=== PATIENT | female | born 1955 | race African-American/Black ===

== ENCOUNTER → 2022-11-01 14:28 | Outpatient (REF) | payer MEDICARE, MEDICAID, SELFPAY ==
--- NOTE | 2022-11-01 14:36 | CA_ITS ---
Transthoracic Echocardiogram Patient (Last, First, Middle): Kalyn Garza, Gender: Female Date of : 1955 Age: 67 Procedure Date: 11/01/2022 Procedure Type: Transthoracic Echocardiogram Location: [facility] Height: 149.86 cm Weight: 88.45 kg BSA: 1.82 m2 Heart Rate: bpm BP: 124 / 60 mmHg Architecture Professor: Referring MD: Chelsea Altamirano MD Cooker Loader: Cameron Medina MD Symptoms: DYSPNEA R06.00 Study Quality: Technically Difficult ECG Rhythm: Sinus Conclusions: - 1. Normal LV ejection fraction 55-60% with moderate asymmetric basal septal hypertrophy with obstructive physiology with mean gradient of 18 mmHg at rest. 2. Normal cardiac valvular Dopplers with limited visualization of cardiac valves 3. Normal measured RV systolic pressure 4. No gross pericardial effusion Findings Procedure Information Contrast agent, definity, is being given per protocol without apparent complications. Left Ventricle Normal left ventricular size, thickness, and systolic function. The visually estimated ejection fraction is between 55-60%. There is no evidence of regional wall motion abnormalities. 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 There is systolic anterior motion of the chordae of the mitral valve. There is moderate septal asymmetric hypertrophy. There is late systolic accentuation in gradient across the LVOT on continuous-wave Doppler suggestive of obstructive physiology, mean gradient of 18 mmHg. Consider alternative imaging modality such as cardiac MRI Right Ventricle The right ventricle was not well visualized. Atria The left atrium was not well visualized. Interatrial shunt cannot be excluded. The right atrium was not well visualized. Aortic Valve There is mild calcification of the aortic valve. There is no aortic valve stenosis. There is mild aortic valve regurgitation. Mitral Valve The mitral valve was not well visualized. There is trace mitral valve regurgitation. There is no mitral valve stenosis. Pulmonic Valve The pulmonic valve is likely normal. There is trace to mild pulmonic valve regurgitation. Tricuspid Valve Normal tricuspid valve structure. There is trace tricuspid valve regurgitation. The right ventricular systolic pressure is normal. The right ventricular systolic pressure is 16 mmHg. Normal right atrial pressure. There is no evidence of pulmonary hypertension. Great Vessels All visible segments of the aorta are normal in size. The pulmonary artery was not well visualized. There is no dilatation of the ascending aorta. Venous The inferior vena cava is normal in size and collapses greater than 50% with inspiration. Pericardium/Pleural There is no evidence of pericardial effusion. Prior Study Comparison No prior study available for comparison. Recommendations, Care & Conclusions Consider a SONDRA if clinically appropriate. Measurements 2D Linear Measurements IVSd: 1.64 0.6-0.9/0.6-1.0 cm LVIDd: 3.20 3.9-5.3/4.2-5.9 cm LVIDd Index: 1.76 2.4-3.2/2.2-3.1 cm/m2 LVIDs: 2.22 2.0-3.6 cm LVPWd: 0.95 0.7-1.1 cm Ao Root: 2.70 2.1-3.5 cm LA Diam: 3.10 2.7-3.8/3.0-4.0 cm LAIDs Index: 1.70 1.5-2.3 cm/m2 LV Mass: 167.89 67-162/88-224 g LV Mass Index: 92.25 43-95/49-115 g/m2 LVOT Diam: 2.00 3.0+(-)1.3 cm Mitral Valve MV Pk E: 0.50 MV PK A: 0.99 MV Decel Time: 150.00 E/A: 0.50 E'Lateral: 6.31 E'Medial: 4.35 E/E' Med: 11.50 E/E' Lat: 7.90 PHT: 44.00 MVA PHT: 5.00 Decel [place]: 3.33 Aortic Valve AoV Pk Ralph: 1.34 AoV Mn Ralph: 0.91 AoV VTI: 0.24 AoV Pk Grad: 7.00 Aov Mn Grad: 4.00 DESI Cont.VTI: 2.23 LVOT LVOT Pk Ralph: 1.01 LVOT Mn Ralph: 0.67 LVOT VTI: 0.17 LVOT Pk Grad: 4.00 LVOT Mn Grad: 18.00 LVOT Diam: 2.00 LVOT Area: 3.14 Diastolic Function MV Pk E: 0.50 MV Pk A: 0.99 E/A: 0.50 E'Medial: 4.35 E/E' Med: 11.50 E' Laterial: 6.31 E/E' Lat: 7.90 Right Ventricle TAPSE (mm): 28.00 TVS' Ralph: 11.00 Tricuspid Valve TR Pk Ralph: 1.82 TR Pk Grad: 13.00 RA Press: 3.00 RVSP: 16.00 Great Vessels Aorta Ao Root-2D: 2.70 2.0-3.7 cm Ao Asc: 3.00 2.1-3.4 cm Pulmonary Valve PV Pk Ralph: 1.30 Peak PV Grad: 7.00 Updated in Other Vendor System with Status of Final Cameron Medina MD electronically signed on 11/02/2022 11:52:20 AM with status of Final
== END ==
LOC: HO.CARD 14:28
PROVIDERS: PCP Internal Medicine; Visit Provider Internal Medicine
DX: R06.00 Dyspnea, unspecified (principal)
CPT/HCPCS: 93306; Q9957

== ENCOUNTER → 2022-11-01 14:36 | Outpatient (BNV) | payer MEDICARE, MEDICAID, SELFPAY | PROVIDERS: PCP Internal Medicine; Visit Provider Internal Medicine Cardiovascular Disease | DX: I37.1 Nonrheumatic pulmonary valve insufficiency (principal); R06.00 Dyspnea, unspecified | CPT/HCPCS: 93306 ==